=== PATIENT | female | born 1985 | race Caucasian/White ===

== ENCOUNTER 2019-08-12 18:31 | Emergency (ER) | payer OTHER ==
[~2019-08-12] VITALS: Ht 154.9 cm; Wt 56.2 kg
[2019-08-12] MEDS ORDERED: ADVIL (19:27)
== END 2019-08-12 22:11 | disposition home or self-care (01) ==
LOC: ER 18:31
DX: R42 Dizziness and giddiness (principal); M62.838 Other muscle spasm; J31.0 Chronic rhinitis